=== PATIENT | male | born 1935 ===

== ENCOUNTER 2024-07-19 09:17 | Inpatient (IN) | payer MEDICARE, OTHER ==
[~2024-07-19] VITALS: Ht 182.9 cm; Wt 62.7 kg
[2024-07-19] VITALS (7 sets, daily range): PULSE 66–112; RESP 18–30; O2SAT 76–100
[2024-07-19] MEDS ORDERED: 0.9% SODIUM CHLORIDE 10 ML SYRINGE IVP PRN (09:30)
[2024-07-19] MEDS ORDERED: PHENYLEPHRINE HCL IN 0.9% NACL 400 MCG/10 ML SYRINGE IVP ONE (09:34)
[2024-07-19 09:45] LABS: BASOPHILS % (AUTO) 0.3 % (0.0-2.0); EOSINOPHILS % (AUTO) 0.6 % (1.0-6.0); HEMATOCRIT 36.3 % (41-53); HEMOGLOBIN 11.1 g/dL (13.5-17.5); LYMPHOCYTES # (AUTO) 0.9 K/uL (1.0-4.8); LYMPHOCYTES % (AUTO) 8.6 % (22.0-44.0); MEAN CORPUSCULAR HEMOGLOBIN 30.5 pg (26.0-34.0); MEAN CORPUSCULAR HGB CONC 30.7 G/dL (31.0-37.0); MEAN CORPUSCULAR VOLUME 99 fL (80-100); MONOCYTES # (AUTO) 0.4 K/uL (0.1-1.0); MONOCYTES % (AUTO) 3.7 % (2.0-9.0); NEUTROPHILS # (AUTO) 9.3 K/uL (1.8-7.7); PLATELET COUNT (AUTO) 316 K/uL (150-450); RED BLOOD CELL COUNT(AUTO) 3.65 MIL/uL (4.50-5.90); RED CELL DISTRIBUTION WIDTH 15.4 % (11.5-14.5); WHITE BLOOD COUNT (AUTO) 10.7 K/uL (4.5-11.0)
[2024-07-19] MEDS ORDERED: PROPOFOL 1000 MG/ISO-OSM 100 ML IV PRN (09:45)
[2024-07-19 09:50] LABS: NEUTROPHILS % (AUTO) 86.8 % (40.0-70.0)
[2024-07-19 09:51] LABS: ANION GAP 25 mmol/L (8-16); CALCIUM, TOTAL 8.8 mg/dL (8.8-10.5); CARBON DIOXIDE 17 mmol/L (22-29); CHLORIDE 109 mmol/L (98-107); CREATININE 2.54 mg/dL (0.60-1.30); GLOMERULAR FILTR. RATE CALC 24 mL/min (>60); GLUCOSE,RANDOM 111 mg/dL (70-110); POTASSIUM 5.7 mmol/L (3.5-5.1); SODIUM SERUM 151 mmol/L (136-145); UREA NITROGEN, BLOOD 55 mg/dL (7-18)
[2024-07-19 09:56] LABS: PROTHROMBIN TIME 14.1 SEC (9.4-11.6)
[2024-07-19 09:57] LABS: ALBUMIN 2.2 g/dL (3.4-5.0); ALKALINE PHOSPHATASE 128 U/L (46-116); ASPARTATE AMINOTRANSFERASE 37 U/L (15-37); BILIRUBIN,TOTAL 0.6 mg/dL (0.1-1.0); TOTAL PROTEIN, SERUM 5.7 g/dL (6.4-8.2)
[2024-07-19] MEDS: SODIUM CHLORIDE 0.9% 1,000 ML IV ONE ×2 (10:01→10:04)
[2024-07-19 10:05] LABS: B-TYPE NATRIURETIC PEPTIDE 80 pg/mL (0-100)
[2024-07-19] MEDS: VASOPRESSIN 40 UNITS in DEXTROSE 5%-WATER 98 ML IV PRN (10:05)
[2024-07-19 10:07] LABS: TROPONIN I-HIGH SENSITIVITY 101 ng/L (<76)
[2024-07-19] MEDS: NOREPINEPHRINE 8 MG/0.9 % NACL 250 ML IV PRN (10:07)
[2024-07-19 10:21] LABS: LACTIC ACID 21.7 mmol/L (0.4-2.0)
[2024-07-19 10:35] LABS: ABG BASE EXCESS -15.6 mmol/L (-2.0-3.0); ABG CARBOXYHEMOGLOBIN 0.3 % (0.5-1.5); ABG HCO3 13.3 mmol/L (21.0-28.0); ABG METHEMOGLOBIN 1.3 % (0.0-1.5); ABG OXYGEN SATURATION 99.7 % (94.0-98.0); ABG OXYHEMOGLOBIN 98.1 % (94.0-98.0); ABG PCO2 32 mmHg (32.0-48.0); ABG TOTAL HEMOGLOBIN 10.7 G/dL (13.5-17.5); SOURCE, BLOOD GAS ARTERIAL
[2024-07-19 10:36] LABS: ABG A-A DIFF O2 250.4 mmHg (10-20.0); ABG PH 7.204 (7.350-7.450); O2 DEVICE,BLOOD GAS VENTILATOR (ROOM AIR); PO2, ARTERIAL BG 431.2 mmHg (83.0-108.0); SITE, BLOOD GAS ARTERIAL LINE; VT, ABG 16 ml
[2024-07-19 10:37] LABS: PEEP,BG 5 cm H2O
[2024-07-19] MEDS: *CLINICAL-CEFEPIME DOSING CLINICAL ONE ×2 (10:40→10:51)
[2024-07-19] MEDS ORDERED: ONDANSETRON HCL 4 MG/2 ML VIAL IVP PRN (10:45)
[2024-07-19] MEDS ORDERED: ACETAMINOPHEN 325 MG TABLET PO PRN (10:45)
[2024-07-19] MEDS ORDERED: BISACODYL 10 MG RECTAL RECTAL SUPPOSITORY PR PRN (10:45)
[2024-07-19] MEDS: CEFEPIME HCL 2 GM in DEXTROSE 5%-WATER 50 ML IV ONE (11:04)
[2024-07-19] MEDS: VANCOMYCIN 1GM/WATER(PEG/NADA) 200 ML IV ONE (11:04)
[2024-07-19] MEDS ORDERED: VANCOMYCIN HCL 1 GM/D5% WATER 200 ML IV PRN (12:30)
[2024-07-19] MEDS ORDERED: SODIUM CHLORIDE 3% 500 ML IV ONE (13:30)
[2024-07-19 14:58] LABS: TROPONIN I-HIGH SENSITIVITY 261 ng/L (<76)
[2024-07-19 15:31] LABS: GLUCOMETER DEV NAME(LOC) ERT.7; GLUCOSE,POINT OF CARE 212 MG/DL (70-110)
[2024-07-19] MEDS ORDERED: HEPARIN SODIUM,PORCINE 5,000 UNITS/ML VIAL SQ SCH (16:00)
[2024-07-19] MEDS: LevETIRAcetam 500 MG in DEXTROSE 5%-WATER 100 ML IV ONE (16:30)
[2024-07-19] MEDS ORDERED: POVIDONE-IODINE 10% 120 ML SOLUTION TP ONE (16:48)
[2024-07-19] MEDS ORDERED: FentaNYL CIT 1000MCG/0.9% NACL 100 ML IV PRN (18:15)
[2024-07-19 18:43] LABS: COVID AG,FIA SOURCE NASAL SWAB
[2024-07-19 19:04] LABS: SARS-COV2 (COVID) ANTIGEN,FIA Negative (Negative)
[2024-07-19 19:18] LABS: APPEARANCE,URINE TURBID (CLEAR); BILIRUBIN,URINE NEGATIVE (NEGATIVE); GLUCOSE, URINE (UA) NEGATIVE (NEGATIVE); KETONES,URINE TRACE mg/dL (NEGATIVE); LEUKOCYTE ESTERASE ,URINE MODERATE (NEGATIVE); NITRATE,URINE NEGATIVE (NEGATIVE); OCCULT BLOOD,URINE LARGE (NEGATIVE); PH,URINE 5.5 (5.0-8.0); PROTEIN,URINE 100-200,SEE CONFIRM mg/dL (NEGATIVE); UROBILINOGEN,URINE <=1.0 mg/dL (<=1.0)
[2024-07-19] MEDS: DOCUSATE SODIUM 100 MG CAPSULE PO SCH (19:23)
[2024-07-19 19:32] LABS: CALCIUM, TOTAL 7.7 mg/dL (8.8-10.5); CREATININE 2.1 mg/dL (0.60-1.30); POTASSIUM 3.3 mmol/L (3.5-5.1)
[2024-07-19 19:37] LABS: AMORPHOUS SEDIMENT,UR Moderate /LPF (None Seen); BACTERIA,URINE Moderate /HPF (None Seen); SQUAMOUS EPITHELIAL CELL,UR Few /LPF (None Seen)
[2024-07-19 19:38] LABS: COLOR,URINE BROWN (YELLOW); SULFOSALICYLIC ACID,URINE 1+ (Negative)
[2024-07-19 20:27] LABS: ABG BASE EXCESS -4.2 mmol/L (-2.0-3.0); ABG CARBOXYHEMOGLOBIN 0.2 % (0.5-1.5); ABG METHEMOGLOBIN 0.8 % (0.0-1.5); ABG OXYGEN CONTENT 16.9 mL/dL (15.0-23.0); ABG OXYGEN SATURATION 94.6 % (94.0-98.0); ABG OXYHEMOGLOBIN 93.7 % (94.0-98.0); ABG PCO2 34 mmHg (32.0-48.0); ABG PH 7.398 (7.350-7.450); ABG TOTAL HEMOGLOBIN 12.8 G/dL (13.5-17.5); PO2, ARTERIAL BG 57.4 mmHg (83.0-108.0); SOURCE, BLOOD GAS ARTERIAL; TEMPERATURE, FAHRENHEIT, BG 88.9 FAHREN (96.0-98.6)
[2024-07-19 20:30] LABS: O2 DEVICE,BLOOD GAS VENTILATOR (ROOM AIR); PEEP,BG 0 cm H2O; SITE, BLOOD GAS ART LINE; VT, ABG 400 ml
[2024-07-19 21:13] LABS: ALBUMIN 2.5 g/dL (3.4-5.0); BILIRUBIN,TOTAL 1.3 mg/dL (0.1-1.0); CALCIUM, TOTAL 7.7 mg/dL (8.8-10.5); CREATININE 2.13 mg/dL (0.60-1.30); MAGNESIUM 2.8 mg/dL (1.80-2.40); PHOSPHORUS 8.3 mg/dL (2.5-4.9); POTASSIUM 3.4 mmol/L (3.5-5.1); TOTAL PROTEIN, SERUM 6.2 g/dL (6.4-8.2)
[2024-07-19 21:35] LABS: CALCIUM, TOTAL 7.8 mg/dL (8.8-10.5); CREATININE 2.11 mg/dL (0.60-1.30); POTASSIUM 3.6 mmol/L (3.5-5.1)
[2024-07-19] MEDS: INSULIN REGULAR, HUMAN 100 UNITS/ML IVP ONE (21:40)
[2024-07-19] MEDS: DEXTROSE 50%-WATER 25 GM/50 ML SYRINGE IVP ONE (21:42)
[2024-07-19] MEDS: CHLORHEXIDINE GLUCONATE 2% TOWELETTE [2'S/6'S] TP SCH (22:00)
[2024-07-19 22:06] LABS: GLUCOMETER DEV NAME(LOC) ERT.7; GLUCOSE,POINT OF CARE 184 MG/DL (70-110)
[2024-07-19] MEDS: CEFEPIME HCL 1 GM in DEXTROSE 5%-WATER 50 ML IV SCH (22:39)
[2024-07-19] MEDS ORDERED: NOREPINEPHRINE 8 MG/0.9 % NACL 250 ML IV PRN (23:30)
[2024-07-19] MEDS ORDERED: VASOPRESSIN 40 UNITS in DEXTROSE 5%-WATER 98 ML IV PRN (23:30)
[2024-07-20] VITALS (11 sets, daily range): BP systolic 91–133; BP diastolic 37–71; PULSE 52–119; RESP 16–30; TEMP 87.7–97.5; O2SAT 88–100
[2024-07-20] MEDS: ETHYL ALCOHOL 62% ANTISEPTIC NASAL SANITIZER 0.6 ML AMPUL NASAL SCH (00:24)
[2024-07-20] MEDS: PROPOFOL 1000 MG/ISO-OSM 100 ML IV PRN (01:45)
[2024-07-20 02:38] LABS: ALBUMIN 2.5 g/dL (3.4-5.0); BILIRUBIN,TOTAL 1.1 mg/dL (0.1-1.0); CALCIUM, TOTAL 7.7 mg/dL (8.8-10.5); CREATININE 2.41 mg/dL (0.60-1.30); MAGNESIUM 2.8 mg/dL (1.80-2.40); PHOSPHORUS 6.5 mg/dL (2.5-4.9); TOTAL PROTEIN, SERUM 6.2 g/dL (6.4-8.2)
[2024-07-20 02:51] LABS: APPEARANCE,URINE HAZY (CLEAR); BILIRUBIN,URINE NEGATIVE (NEGATIVE); COLOR,URINE YELLOW (YELLOW); GLUCOSE, URINE (UA) 70-100 mg/dL (NEGATIVE); KETONES,URINE TRACE mg/dL (NEGATIVE); LEUKOCYTE ESTERASE ,URINE SMALL (NEGATIVE); NITRATE,URINE NEGATIVE (NEGATIVE); OCCULT BLOOD,URINE LARGE (NEGATIVE); PH,URINE 5.5 (5.0-8.0); PROTEIN,URINE 100-200,SEE CONFIRM mg/dL (NEGATIVE); SPECIFIC GRAVITIY, URINE 1.021 (1.003-1.030); UROBILINOGEN,URINE <=1.0 mg/dL (<=1.0)
[2024-07-20 02:54] LABS: CREATININE,URINE RANDOM 108.6 mg/dL (30.0-125.0); SODIUM,URINE RANDOM 40 mmol/l (20-110); UREA NITROGEN,URINE RANDOM 192 mg/dL (350-1000)
[2024-07-20 02:54] LABS: POTASSIUM 2.9 mmol/L (3.5-5.1)
[2024-07-20 02:58] LABS: WBC,URINE 0-2 /HPF (0-5)
[2024-07-20 02:59] LABS: AMORPHOUS SEDIMENT,UR Moderate /LPF (None Seen); BACTERIA,URINE Few /HPF (None Seen); COARSE GRANULAR CASTS,URINE 0-2 /LPF (None Seen); SQUAMOUS EPITHELIAL CELL,UR Few /LPF (None Seen)
[2024-07-20] MEDS ORDERED: SODIUM CHLORIDE 0.9% 250 ML IV ONE (03:24)
[2024-07-20] MEDS: POTASSIUM CHL 10 MEQ/WATER 50 ML IV ONE (03:30)
[2024-07-20 06:11] LABS: CALCIUM, TOTAL 7.6 mg/dL (8.8-10.5); CREATININE 2.44 mg/dL (0.60-1.30); POTASSIUM 3.4 mmol/L (3.5-5.1)
[2024-07-20 08:13] LABS: ABG BASE EXCESS -2.9 mmol/L (-2.0-3.0); ABG CARBOXYHEMOGLOBIN 0.4 % (0.5-1.5); ABG METHEMOGLOBIN 0.1 % (0.0-1.5); ABG OXYGEN CONTENT 19.4 mL/dL (15.0-23.0); ABG OXYGEN SATURATION 99.5 % (94.0-98.0); ABG PCO2 37 mmHg (32.0-48.0); ABG PH 7.389 (7.350-7.450); ABG TOTAL HEMOGLOBIN 13.5 G/dL (13.5-17.5); PO2, ARTERIAL BG 235.1 mmHg (83.0-108.0); SOURCE, BLOOD GAS ARTERIAL; TEMPERATURE, FAHRENHEIT, BG 90.5 FAHREN (96.0-98.6)
[2024-07-20] MEDS ORDERED: LORazepam 2 MG/ML VIAL IVP PRN (08:15)
[2024-07-20 08:16] LABS: O2 DEVICE,BLOOD GAS VENTILATOR (ROOM AIR); PEEP,BG 0 cm H2O; SITE, BLOOD GAS ARTERIAL LINE; SPONTANEOUS VT, BG 506 ml; VT, ABG 400 ml
[2024-07-20] MEDS: PANTOPRAZOLE SODIUM 40 MG/VIAL IVP SCH (08:41)
[2024-07-20 11:15] LABS: ALBUMIN 2.5 g/dL (3.4-5.0); BILIRUBIN,TOTAL 1.1 mg/dL (0.1-1.0); CALCIUM, TOTAL 7.8 mg/dL (8.8-10.5); CREATININE 2.69 mg/dL (0.60-1.30); MAGNESIUM 2.7 mg/dL (1.80-2.40); PHOSPHORUS 7.2 mg/dL (2.5-4.9); POTASSIUM 3.4 mmol/L (3.5-5.1); TOTAL PROTEIN, SERUM 6.1 g/dL (6.4-8.2)
[2024-07-20 11:15] LABS: BASOPHILS % (AUTO) 1.1 % (0.0-2.0); EOSINOPHILS % (AUTO) 0 % (1.0-6.0); HEMATOCRIT 37.6 % (41-53); HEMOGLOBIN 11.9 g/dL (13.5-17.5); LYMPHOCYTES # (AUTO) 0.7 K/uL (1.0-4.8); LYMPHOCYTES % (AUTO) 2.7 % (22.0-44.0); MEAN CORPUSCULAR HEMOGLOBIN 29.8 pg (26.0-34.0); MEAN CORPUSCULAR HGB CONC 31.7 G/dL (31.0-37.0); MEAN CORPUSCULAR VOLUME 94 fL (80-100); MONOCYTES # (AUTO) 1.9 K/uL (0.1-1.0); MONOCYTES % (AUTO) 7.9 % (2.0-9.0); NEUTROPHILS # (AUTO) 21.7 K/uL (1.8-7.7); PLATELET COUNT (AUTO) 251 K/uL (150-450); WHITE BLOOD COUNT (AUTO) 24.6 K/uL (4.5-11.0)
[2024-07-20 11:19] LABS: NEUTROPHILS % (AUTO) 88.3 % (40.0-70.0)
[2024-07-20] MEDS ORDERED: DiphenhydrAMINE HCL 50 MG/ML VIAL IVP PRN (11:30)
[2024-07-20] MEDS ORDERED: ONDANSETRON HCL 4 MG/2 ML VIAL IVP PRN (11:30)
[2024-07-20] MEDS: MORPHINE SULFATE 100 MG/NS/PF 100 ML IV PRN (12:09)
[2024-07-20 17:46] LABS: ALBUMIN 2.5 g/dL (3.4-5.0); BILIRUBIN,TOTAL 1.2 mg/dL (0.1-1.0); CREATININE 2.88 mg/dL (0.60-1.30); MAGNESIUM 2.8 mg/dL (1.80-2.40); PHOSPHORUS 7.3 mg/dL (2.5-4.9); TOTAL PROTEIN, SERUM 6.7 g/dL (6.4-8.2)
[2024-07-21 04:20] VITALS: BP 90/55; PULSE 98; RESP 20; TEMP 97.4; O2SAT 95
[2024-07-21 09:02] VITALS: BP 77/55; PULSE 107; RESP 20; TEMP 97.2; O2SAT 93
[2024-07-21 11:29] VITALS: BP 82/50; PULSE 114; RESP 20; TEMP 98.8; O2SAT 94
[2024-07-21] MEDS ORDERED: 0.9% SODIUM CHLORIDE 10 ML SYRINGE IVP ONE (12:00)
[2024-07-21] MEDS ORDERED: EPINEPHrine 1:10,000 [1 MG/10 ML] SYRINGE ONE (12:00)
[2024-07-21] MEDS ORDERED: SODIUM BICARBONATE [ADULT] 8.4% 50 MEQ/50 ML SYRINGE IVP ONE (12:00)
[2024-07-21 15:25] VITALS: BP 64/47; PULSE 109; RESP 20; TEMP 99; O2SAT 95
[2024-07-21 18:41] VITALS: BP 63/46; PULSE 108; RESP 11; TEMP 99.5; O2SAT 90
[2024-07-21 19:44] VITALS: BP 63/45; PULSE 106; RESP 15; TEMP 97.9; O2SAT 90
[2024-07-22 04:30] VITALS: BP 66/43; PULSE 101; RESP 13; TEMP 98; O2SAT 90
[2024-07-22 08:41] VITALS: BP 65/43; PULSE 98; RESP 12; TEMP 99; O2SAT 93
[2024-07-22 15:58] VITALS: BP 67/46; PULSE 95; RESP 8; TEMP 98.2; O2SAT 93
[2024-07-22 19:50] VITALS: BP 70/46; PULSE 93; RESP 10; TEMP 97.9; O2SAT 80
[2024-07-24 14:13] LABS: CANDIDA AURIS PCR,SURVEILLANCE Not Detected C(t) (Not Detectd)
== END 2024-07-23 06:25 | DRG 871 ==
LOC: EMS 09:18 → EDH 10:44 → ICU 23:41 → 6S 07-20 17:42
PROVIDERS: ADMIT Internal Medicine; ATTEND Internal Medicine
PROC: 5A12012 Performance of Cardiac Output, Single, Manual (ICD-10-PCS; principal; 2024-07-19)
PROC: 06HY33Z Insertion of Infusion Device into Lower Vein, Percutaneous Approach (ICD-10-PCS; 2024-07-19)
PROC: B54BZZA Ultrasonography of Right Lower Extremity Veins, Guidance (ICD-10-PCS; 2024-07-19)
PROC: 04HY32Z Insertion of Monitoring Device into Lower Artery, Percutaneous Approach (ICD-10-PCS; 2024-07-19)
PROC: 5A1945Z Respiratory Ventilation, 24-96 Consecutive Hours (ICD-10-PCS; 2024-07-19)
DX: A41.9 Sepsis, unspecified organism (principal); E43 Unspecified severe protein-calorie malnutrition; I21.A1 Myocardial infarction type 2; I60.9 Nontraumatic subarachnoid hemorrhage, unspecified; J96.01 Acute respiratory failure with hypoxia; R65.21 Severe sepsis with septic shock; J18.9 Pneumonia, unspecified organism; N17.0 Acute kidney failure with tubular necrosis; R40.20 Unspecified coma; E87.20 Acidosis, unspecified; E87.0 Hyperosmolality and hypernatremia; F03.918 Unspecified dementia, unspecified severity, with other behavioral disturbance; G93.49 Other encephalopathy; N30.01 Acute cystitis with hematuria; J93.9 Pneumothorax, unspecified; M84.48XA Pathological fracture, other site, initial encounter for fracture; Z99.11 Dependence on respirator [ventilator] status; Z68.1 Body mass index [BMI] 19.9 or less, adult; Z66 Do not resuscitate; I71.43 Infrarenal abdominal aortic aneurysm, without rupture; I46.9 Cardiac arrest, cause unspecified; R57.0 Cardiogenic shock; D64.9 Anemia, unspecified; E87.5 Hyperkalemia; Y95 Nosocomial condition; G25.3 Myoclonus; N40.0 Benign prostatic hyperplasia without lower urinary tract symptoms; I10 Essential (primary) hypertension; E88.A Wasting disease (syndrome) due to underlying condition; E87.6 Hypokalemia; Z51.5 Encounter for palliative care; Z87.01 Personal history of pneumonia (recurrent)
CPT/HCPCS: 70450; 71045; 71250; 72192; 74150; 80048; 80053; 80076; 81001; 81002; 82570; 82805; 82962; 83605; 83735; 83880; 84100; 84145; 84300; 84484; 84540; 85025; 85610; 85730; 87040; 87081; 87086; 87481; 92950; 93005; 93306; 94002; 94003; 99285; J0171; J0692; J0712; J1815; J2060; J2270; J2470; J2704; J3480; J3490; J7030; J7050; J7060; 36415-L1; 36415-TC